=== PATIENT | female | born 2000 | race Caucasian/White ===

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

== ENCOUNTER 2022-10-14 19:34 | Emergency (ER) | payer OTHER, BC ==
[2022-10-14 20:08] VITALS: BP 116/64; PULSE 77; RESP 18; TEMP 98; BMI 32.9
[2022-10-14] MEDS ORDERED: ACETAMINOPHEN 500 MG TABLET (FP) PO ONE (20:27)
[2022-10-14] MEDS ORDERED: ACETAMINOPHEN 500 MG TABLET (FP) ONE (20:37)
== END 2022-10-14 20:52 | disposition home or self-care (01) ==
LOC: FER 19:34
DX: S09.90XA Unspecified injury of head, initial encounter (principal); R51.9 Headache, unspecified; W22.8XXA Striking against or struck by other objects, initial encounter
CPT/HCPCS: 99283-25